=== PATIENT | female | born 1990 | race Two or more races ===

== ENCOUNTER 2018-02-22 09:53 | Observation (INO) | payer MEDICAID | END 2018-02-22 11:05 | disposition home or self-care (01) | DRG 566 | LOC: LDRP 09:53 | PROVIDERS: ADMIT Obstetrics & Gynecology; ATTEND Obstetrics & Gynecology | DX: O24.419 Gestational diabetes mellitus in pregnancy, unspecified control (principal); O60.03 Preterm labor without delivery, third trimester; O13.3 Gestational [pregnancy-induced] hypertension without significant proteinuria, third trimester; Z3A.33 33 weeks gestation of pregnancy | CPT/HCPCS: 59025; 81002; 82948; 82962; G0378 ==

== ENCOUNTER 2018-02-25 09:00 | Observation (INO) | payer MEDICAID ==
[~2018-02-25] VITALS: Ht 160 cm; Wt 117.0 kg
[2018-02-25] MEDS ORDERED: PREN-145 OR (09:46)
[2018-02-25] MEDS ORDERED: HYDR250I6 IM (09:46)
== END 2018-02-25 11:00 | disposition home or self-care (01) | DRG 566 ==
LOC: LDRP 09:00
PROVIDERS: ADMIT Specialist; ATTEND Specialist
DX: O24.419 Gestational diabetes mellitus in pregnancy, unspecified control (principal); Z3A.34 34 weeks gestation of pregnancy
CPT/HCPCS: 59025; 76818; 81002; 82948; 82962; G0378

== ENCOUNTER 2018-02-28 11:02 | Observation (INO) | payer MEDICAID ==
[~2018-02-28 11:02] MED LIST: HYDR250I6 IM; PREN-145 OR
== END 2018-02-28 12:30 | disposition home or self-care (01) | DRG 566 ==
LOC: LDRP 11:02
PROVIDERS: ADMIT Specialist; ATTEND Specialist
DX: O24.419 Gestational diabetes mellitus in pregnancy, unspecified control (principal); O60.03 Preterm labor without delivery, third trimester; Z3A.34 34 weeks gestation of pregnancy
CPT/HCPCS: 59025; 76818; 81002; 82962; G0378

== ENCOUNTER 2018-03-04 13:55 | Observation (INO) | payer MEDICAID | END 2018-03-04 15:10 | disposition home or self-care (01) | DRG 566 | LOC: LDRP 13:55 | PROVIDERS: ADMIT Obstetrics & Gynecology; ATTEND Obstetrics & Gynecology | DX: O24.419 Gestational diabetes mellitus in pregnancy, unspecified control (principal); Z3A.35 35 weeks gestation of pregnancy | CPT/HCPCS: 59025; 76818; 81002; 82948; G0378 ==

== ENCOUNTER 2018-03-07 10:27 | Observation (INO) | payer MEDICAID ==
[~2018-03-07] VITALS: Ht 160 cm; Wt 113.4 kg
[2018-03-07] MEDS ORDERED: BETAMETHASONE ACET (6MG/ML) 5ML VIAL IM ONE (11:15)
== END 2018-03-07 11:35 | disposition home or self-care (01) | DRG 563 ==
LOC: LDRP 10:27
PROVIDERS: ADMIT Specialist; ATTEND Specialist
DX: O60.03 Preterm labor without delivery, third trimester (principal); Z3A.34 34 weeks gestation of pregnancy
CPT/HCPCS: 59025; 76818; 81002; 82962; 96372; G0378; J0702

== ENCOUNTER 2018-03-08 12:45 | Observation (INO) | payer MEDICAID ==
[2018-03-08] MEDS ORDERED: BETAMETHASONE ACET (6MG/ML) 5ML VIAL IM ONE (13:00)
== END 2018-03-08 13:40 | disposition home or self-care (01) | DRG 563 ==
LOC: LDRP 12:45
PROVIDERS: ADMIT Obstetrics & Gynecology; ATTEND Obstetrics & Gynecology
DX: O60.03 Preterm labor without delivery, third trimester (principal); Z3A.35 35 weeks gestation of pregnancy
CPT/HCPCS: 59025; 81002; 82948; 96372; G0378

== ENCOUNTER 2018-03-11 13:45 | Observation (INO) | payer MEDICAID | END 2018-03-11 14:50 | disposition home or self-care (01) | DRG 566 | LOC: LDRP 13:45 | PROVIDERS: ADMIT Obstetrics & Gynecology; ATTEND Obstetrics & Gynecology | DX: O24.419 Gestational diabetes mellitus in pregnancy, unspecified control (principal); Z3A.36 36 weeks gestation of pregnancy | CPT/HCPCS: 59025; 76818; 81002; 82962; G0378 ==

== ENCOUNTER 2018-03-14 13:55 | Observation (INO) | payer MEDICAID | END 2018-03-14 15:00 | disposition home or self-care (01) | DRG 566 | LOC: LDRP 13:55 | PROVIDERS: ADMIT Specialist; ATTEND Specialist | DX: O36.8130 Decreased fetal movements, third trimester, not applicable or unspecified (principal); O24.419 Gestational diabetes mellitus in pregnancy, unspecified control; O40.3XX0 Polyhydramnios, third trimester, not applicable or unspecified; Z3A.36 36 weeks gestation of pregnancy | CPT/HCPCS: 59025; 76818; 81002; 82948; G0378 ==

== ENCOUNTER 2018-03-18 14:23 | Observation (INO) | payer MEDICAID | END 2018-03-18 15:25 | disposition home or self-care (01) | DRG 566 | LOC: LDRP 14:23 | PROVIDERS: ADMIT Specialist; ATTEND Specialist | DX: O24.419 Gestational diabetes mellitus in pregnancy, unspecified control (principal); Z3A.37 37 weeks gestation of pregnancy | CPT/HCPCS: 76818; G0378; 59025; 81002; 82948 ==

== ENCOUNTER 2018-03-21 13:47 | Observation (INO) | payer MEDICAID ==
[~2018-03-21 13:47] MED LIST changes: -HYDR250I6 IM
== END 2018-03-21 15:10 | disposition home or self-care (01) | DRG 566 ==
LOC: LDRP 13:47
PROVIDERS: ADMIT Obstetrics & Gynecology; ATTEND Obstetrics & Gynecology
DX: O24.419 Gestational diabetes mellitus in pregnancy, unspecified control (principal); Z3A.37 37 weeks gestation of pregnancy
CPT/HCPCS: 59025; 76818; 81002; 82962; G0378

== ENCOUNTER 2018-03-24 14:39 | Observation (INO) | payer MEDICAID | END 2018-03-24 15:30 | disposition home or self-care (01) | DRG 566 | LOC: LDRP 14:39 | PROVIDERS: ADMIT Specialist; ATTEND Specialist | DX: O24.419 Gestational diabetes mellitus in pregnancy, unspecified control (principal); Z3A.38 38 weeks gestation of pregnancy | CPT/HCPCS: 59025; 76818; 81002; 82948; G0378 ==

== ENCOUNTER 2018-03-26 15:07 | Observation (INO) | payer MEDICAID | END 2018-03-28 10:55 | disposition home or self-care (01) | DRG 566 | LOC: LDRP 03-28 10:00 | PROVIDERS: ADMIT Specialist; ATTEND Specialist | DX: O24.419 Gestational diabetes mellitus in pregnancy, unspecified control (principal); Z3A.38 38 weeks gestation of pregnancy | CPT/HCPCS: 59025; 76818; 81002; 82948; 82962; G0378 ==